=== PATIENT | female | born 1960 | race Caucasian/White ===

== ENCOUNTER 2019-10-10 14:15 | Emergency (ER) | payer OTHER ==
[~2019-10-10] VITALS: Ht 160 cm; Wt 97.5 kg
[~2019-10-10 14:15] MED LIST: ACETAMINOPHEN-1 EAC1; APIDRA; ASPIRIN EC81 M1 PO; ATORVASTATIN CA40 MG PO; CYMBALTA60 MG PO; GLUMETZA500; LEVOTHYROXIN0.137 M1 PO; LIPITOR40 MG; NORCO 5-325 TA1 EACH PO; PERCOCET 5-3251 EACH PO; ZESTORETIC 20-1 EACH; [UNRECOGNIZED DRUG - CODE]
[2019-10-10] MEDS ORDERED: PERCOCET PO (14:53)
[2019-10-10 15:20] VITALS: BP 168/89
== END 2019-10-10 15:21 | disposition home or self-care (01) ==
LOC: M.ERS 14:15
DX: G89.29 Other chronic pain (principal); R10.11 Right upper quadrant pain; E11.9 Type 2 diabetes mellitus without complications; Z90.49 Acquired absence of other specified parts of digestive tract; Z79.4 Long term (current) use of insulin

== ENCOUNTER 2020-06-21 13:44 | Emergency (ER) | payer OTHER ==
[~2020-06-21] VITALS: Ht 160 cm; Wt 88.5 kg
[~2020-06-21 13:44] MED LIST changes: +PERCOCET PO
[2020-06-21] MEDS ORDERED: HYDROCODON-ACE1 EAC7 PO (14:06)
[2020-06-21 14:34] VITALS: BP 120/66
== END 2020-06-21 14:34 | disposition home or self-care (01) ==
LOC: M.ERS 13:44
DX: G89.29 Other chronic pain (principal); R10.11 Right upper quadrant pain; E11.9 Type 2 diabetes mellitus without complications; Z88.8 Allergy status to other drugs, medicaments and biological substances; Z90.49 Acquired absence of other specified parts of digestive tract; Z79.4 Long term (current) use of insulin